=== PATIENT | female | born 1985 | race Caucasian/White ===

== ENCOUNTER 2019-04-05 11:52 | Outpatient (CLI) | payer BC ==
[~2019-04-05] VITALS: Ht 157.5 cm; Wt 72.3 kg
[2019-04-05] VITALS (15 sets, daily range): BP systolic 97–130; BP diastolic 50–65; PULSE 84–113; TEMP 97.9–98.4
--- NOTE | 2019-04-05 11:45 | NUR ---
1145-G3L2 34.[address] Mccain's ambulatory to LR 1 with complaints of possible SROM since last night at 2230. She has had several episodes of "needing to change from being wet." Denies gush of fluid. Denies vaginal bleeding. Reports good movement. Assessment complete. 1215-Dr. Mccain in room, reviews plan of care. Bedside sono by . Speculum examp by Dr. Mccain, slide obtained for review, Amnitest negative. Amnisure obtained by and sent to lab. 1304-Dr. Mccain back to room. Reviews Amnisure results with patient and spouse.
[2019-04-05] MEDS ORDERED: PRENATAL (12:05)
[2019-04-05] MEDS ORDERED: ZANTAC 150MG T150 MG PO (12:05)
--- NOTE | 2019-04-05 13:25 | NUR ---
FHR deceleration noted lasting 60 seconds intermittently to 90 bpm. RN at bedside, patient noted to be sitting upright in bed. Patient repositioned WL, FHR back to baseline.
--- NOTE | 2019-04-05 14:33 | NUR ---
1433-Dr. Mccain to room, Reviews plan of care with patient. Awaiting call back from [facility] for further orders.
--- NOTE | 2019-04-05 15:00 | NUR ---
1500-Dr. Mccain called unit to order for monitoring and bedrest until he returns this afternoon. At this time plan for repeat spec exam and amnusure lab.
--- NOTE | 2019-04-05 17:30 | NUR ---
1730-Dr. Mccain on unit. Updated Patient. Patient up to bathroom. Returns to bed. MD to bedside. 174-Speculum exam by MD, amnitest +, Slide obtained and taken to lab for review by MD. Amnisure sent to lab awaiting results.
--- NOTE | 2019-04-05 18:20 | NUR ---
1820- Report received. Care assumed. 1830- Amnisure positive. Information reviewed with Dr. Mccain. Dr. Mccain to the bedside to reviewed plan of care with pt. 185- Pt to transfer to [facility] via private vehicle. Orders for IM betamethasone received prior to discharge. 190- IM betamethasone given. See EMAR for details. Discharge instructions reviewed with pt and at the bedside. 1904- Pt off unit to [facility] via private vehicle escorted by . Information faxed to [facility] Labor and Delivery unit - confirmation received.
== END 2019-04-05 19:05 | disposition critical access hospital (66) ==
LOC: LDRO 11:52 → LDR 11:54 → LDRO 19:05
DX: O42.013 Preterm premature rupture of membranes, onset of labor within 24 hours of rupture, third trimester (principal); Z3A.34 34 weeks gestation of pregnancy
CPT/HCPCS: OP; J0702